=== PATIENT | male | born 1975 | race Native Hawaiian/Other Pacific Islander ===

== ENCOUNTER 2021-08-23 08:10 | Day surgery (SDC) | payer OTHER ==
[2021-08-20 11:54] VITALS: BMI 41.5
--- NOTE | 2021-08-23 07:11 | P.GSHP ---
History of Present Illness H&P Date: 08/23/21 CHIEF COMPLAINT: GERD HISTORY OF PRESENT ILLNESS: The patient is a 45-year-old male who presents reports gastroesophageal reflux disease. Upper endoscopy was offered for further evaluation and management. PAST MEDICAL HISTORY: Please see list. PAST SURGICAL HISTORY: Please see list. MEDICATIONS: Please see list. ALLERGIES: Please see list. SOCIAL HISTORY: No illicit drug use FAMILY HISTORY: No reports of Crohn disease or ulcerative colitis. REVIEW OF ORGAN SYSTEMS: CONSTITUTIONAL: No reports of fevers or chills. GI: Denies any blood in stools or constipation. PHYSICAL EXAM: VITAL SIGNS: Stable GENERAL: Well-developed and pleasant in no acute distress. HEENT: No scleral icterus. Extraocular movements grossly intact. Moist buccal mucosa. NECK: Supple without lymphadenopathy. CHEST: Unlabored respirations. Equal bilateral excursions. CARDIOVASCULAR: Regular rate and rhythm. Distal 2+ pulses. ABDOMEN: Soft, nondistended. MUSCULOSKELETAL: No clubbing, cyanosis, or edema. ASSESSMENT: 1. Gastroesophageal reflux disease PLAN: 1. Recommend proceeding with an upper endoscopy Past Medical History Past Medical History: GERD/Reflux Additional Past Medical History / Comment(s): seasonal allergies. vertigo. undiagnosed sleep apnea. History of Any Multi-Drug Resistant Organisms: None Reported Past Surgical History: Appendectomy, Orthopedic Surgery Additional Past Surgical History / Comment(s): titanium cage around right collar bone. right ankle fused with bone from right hip. multiple surgeries on left hand and wrist. Past Anesthesia/Blood Transfusion Reactions: No Reported Reaction Smoking Status: Current every day smoker - Past Family History Mother Family Medical History: No Reported History Medications and Allergies Home Medications Medication Instructions Recorded Confirmed Type Gabapentin [Neurontin] 800 mg PO TID 07/05/21 08/20/21 History Loratadine-Pseudoeph 10-240 mg 1 tab PO DAILY 07/05/21 08/20/21 History [Claritin-D 24 Hour] Naltrexone HCl [Revia] 50 mg PO DAILY 07/05/21 08/20/21 History Omeprazole [PriLOSEC] 20 mg PO AC-BRKFST 07/05/21 08/20/21 History Propranolol HCl 40 mg PO BID 07/05/21 08/20/21 History QUEtiapine FUMARATE [SEROquel XR] 400 mg PO HS 07/05/21 08/20/21 History buPROPion XL [Wellbutrin XL] 300 mg PO DAILY 07/05/21 08/20/21 History traZODone HCL 200 mg PO HS 07/05/21 08/20/21 History Ergocalciferol [Vitamin D2 (1250 50,000 unit PO WEEKLY 07/14/21 08/20/21 History Mcg = 88905 Iu)] Allergies Allergy/AdvReac Type Severity Reaction Status Date / Time No Known Allergies Allergy Verified 08/20/21 11:43
[~2021-08-23 08:10] MED LIST: LACTATED RINGERS 1,000 ML IV SCH
[2021-08-23 08:30] VITALS: TEMP 97.1
[2021-08-23] MEDS ORDERED: LACTATED RINGERS 1,000 ML IV ONE (08:38)
[2021-08-23] MEDS ORDERED: PROPOFOL 10 MG/ML 20 ML VIAL IV ONE (09:26)
[2021-08-23] MEDS ORDERED: .fentaNYL (PF) 50 MCG/ML 2 ML AMP ONE (09:26)
[2021-08-23] MEDS ORDERED: LIDOCAINE 1% INJ 10MG/ML (20 ML MDV) ONE (09:26)
--- NOTE | 2021-08-23 09:48 | P.PCN ---
Date of Procedure: 08/23/21 Description of Procedure: PREOPERATIVE DIAGNOSIS: Gastroesophageal reflux disease. Morbid obesity. POSTOPERATIVE DIAGNOSIS: Morbid obesity. Gastritis. Gastroesophageal reflux disease. Diaphragmatic hiatal hernia OPERATION: Esophagogastroduodenoscopy with biopsies along antrum. SURGEON: Rosa M Mills MD ANESTHESIA: MAC. INDICATIONS: The patient is a 45-year-old male who presents with a history of reflux disease. Benefits and risks of the procedure were described. Informed consent was obtained. DESCRIPTION: The patient was brought into the endoscopy suite and laid in the left lateral decubitus position. An Olympus gastroscope was passed along the posterior oropharynx down to the distal esophagus where the squamocolumnar junction was encountered at 37 cm from the incisors. The stomach was entered and no bile reflux was found. Additional findings are listed below. Biopsies with cold forc eps were obtained of the antrum. The first through third portion of the duodenum was examined and unremarkable. Retroflexion of the scope confirmed Hill grade 3 lower esophageal valve. The squamocolumnar junction demonstrated LA grade B erosive esophagitis. The stomach was desufflated. The patient tolerated the procedure well. FINDINGS: Squamocolumnar junction 37 cm from the incisors. Diaphragmatic hiatus at 40 cm. Hiatal hernia, 3 cm, sliding hiatal hernia Hill grade 4 lower esophageal valve. LA grade B erosive esophagitis. No active duodenitis. Chronic gastritis RECOMMENDATIONS: Upper endoscopy as needed. Plan - Discharge Summary Discharge Rx Participant: No New Discharge Prescriptions: Continue Loratadine-Pseudoeph 10-240 mg [Claritin-D 24 Hour] 1 tab PO DAILY Gabapentin [Neurontin] 800 mg PO TID buPROPion XL [Wellbutrin XL] 300 mg PO DAILY QUEtiapine FUMARATE [SEROquel XR] 400 mg PO HS Propranolol HCl 40 mg PO BID Naltrexone HCl [Revia] 50 mg PO DAILY Ergocalciferol [Vitamin D2 (1250 Mcg = 80997 Iu)] 50,000 unit PO WEEKLY Omeprazole [PriLOSEC] 20 mg PO AC-BRKFST traZODone HCL 200 mg PO HS Discharge Medication List Gabapentin [Neurontin] 800 mg PO TID 07/05/21 [History] Loratadine-Pseudoeph 10-240 mg [Claritin-D 24 Hour] 1 tab PO DAILY 07/05/21 [History] Naltrexone HCl [Revia] 50 mg PO DAILY 07/05/21 [History] Omeprazole [PriLOSEC] 20 mg PO AC-BRKFST 07/05/21 [History] Propranolol HCl 40 mg PO BID 07/05/21 [History] QUEtiapine FUMARATE [SEROquel XR] 400 mg PO HS 07/05/21 [History] buPROPion XL [Wellbutrin XL] 300 mg PO DAILY 07/05/21 [History] traZODone HCL 200 mg PO HS 07/05/21 [History] Ergocalciferol [Vitamin D2 (1250 Mcg = 42014 Iu)] 50,000 unit PO WEEKLY 07/14/21 [History] Follow up Appointment(s)/Referral(s): [facility] [NON-STAFF] - 09/08/21 Patient Instructions/Handouts: Hiatal Hernia (GEN), Gastroesophageal Reflux Disease (DC) Discharge Disposition: HOME SELF-CARE
[2021-08-23 09:51] VITALS: RESP 16
[2021-08-23 10:02] VITALS: BP 115/80; PULSE 98
== END 2021-08-23 10:23 | disposition home or self-care (01) ==
LOC: ORWHC2ENDO 08:10
PROVIDERS: ATTEND Surgery Plastic and Reconstructive Surgery
DX: K29.70 Gastritis, unspecified, without bleeding (principal); K21.9 Gastro-esophageal reflux disease without esophagitis; K44.9 Diaphragmatic hernia without obstruction or gangrene; E66.01 Morbid (severe) obesity due to excess calories; F17.200 Nicotine dependence, unspecified, uncomplicated
CPT/HCPCS: 43239; 88305; J2001; J3010; J2704

== ENCOUNTER → 2022-05-16 | Outpatient (CLI) | payer OTHER ==
[2022-05-16 10:34] VITALS: BMI 40.3
== END ==
LOC: BARWHC3 08:35
PROVIDERS: ATTEND Surgery Plastic and Reconstructive Surgery
DX: Z71.3 Dietary counseling and surveillance (principal); E66.01 Morbid (severe) obesity due to excess calories; Z68.41 Body mass index [BMI] 40.0-44.9, adult
CPT/HCPCS: 97804

== ENCOUNTER → 2022-08-03 | Outpatient (CLI) | payer OTHER ==
[2022-08-03 12:58] VITALS: BP 118/86; PULSE 92; TEMP 98.4; BMI 36.7
--- NOTE | 2022-08-03 13:49 | P.BASOAP ---
Subjective Progress Note Date: 08/03/22 He had surgery in February for adrenal glans February 2022. He had robotic approach. He is looking into gastric bypass for GERD. Labs from Sep 2021 with high triglycerides and cholesterol. He lost weight and has food diarrhea. Recommend labs. He had surgery with risk of scar tissue discussed. He opted for sleeve if gastric bypass unable to perform. Objective - Vital Signs Vital signs: Vital Signs Temp 98.4 F 08/03/22 12:55 Pulse 92 08/03/22 12:55 Resp BP 118/86 08/03/22 12:55 Pulse Ox FiO2 Intake & Output 08/02/22 08/03/22 08/03/22 18:59 06:59 18:59 Weight 104.78 kg Assessment/Plan Plan: Date: 08/03/22 Initial Weight: Initial BMI: Current Weight: 104.78 kg Current BMI: 36.7 Type of Surgery: Total Volume in Band: Previous Volume: Volume Removed: Volume Added: Band Size:
--- NOTE | 2022-08-03 14:57 | XR ---
EXAMINATION TYPE: XR chest 2V DATE OF EXAM: 08/03/2022 COMPARISON: NONE TECHNIQUE: PA and lateral views submitted. HISTORY: Sleep apnea FINDINGS: The lungs are clear and there is no pneumothorax, pleural effusion, or focal pneumonia. Postsurgica l changes right clavicle previous trauma left clavicle. Curvature of the spine. Hyperinflation sugges tive of COPD. IMPRESSION: 1. No acute process. Correlate for COPD.
[2022-08-03 15:20] LABS: INR 0.9 (<1.2); Partial Thromboplastin Time 23.6 sec (22.0-30.0); Prothrombin Time 10.3 sec (9.0-12.0)
[2022-08-03 17:53] LABS: HCT 41.9 % (39.6-50.0); HGB 14.5 g/dL (13.0-17.0); MCH 33.6 pg (27.0-32.0); MCHC 34.6 g/dL (32.0-37.0); Mean Platelet Volume 11.1 fL (9.5-12.2); NRBC Per 100 WBC 0 /100 WBCS (0.0-0.0); Platelet Count 128 X 10*3/uL (140-440); RBC 4.32 X 10*6/uL (4.40-5.60); RDW 12.6 % (11.5-14.5); WBC 4.82 X 10*3/uL (4.50-10.00)
[2022-08-03 18:43] LABS: HDL Cholesterol 39.2 mg/dL (40.00-60.00); Prealbumin 31.8 mg/dL (18.0-42.0)
[2022-08-03 18:49] LABS: % Iron Saturation 14.96 (15.00-50.00); African American GFR (CKD) 106.7 (60.0-200.0); Albumin 4.6 g/dL (3.8-4.9); Albumin/Globulin Ratio 1.88 (1.60-3.17); Anion Gap 14.6 mmol/L (10.00-18.00); BUN/Creat Ratio 14.31 Ratio (12.00-20.00); Blood Urea Nitrogen 14.2 mg/dL (9.0-27.0); Calcium 8.8 mg/dL (8.7-10.3); Carbon Dioxide 21.8 mmol/L (20.0-27.5); Globulin 2.5 g/dL (1.6-3.3); Magnesium 2.1 mg/dL (1.5-2.4); Phosphorus 3.4 mg/dL (2.4-5.1); Potassium 3.8 mmol/L (3.5-5.5); Total Bilirubin 0.3 mg/dL (0.30-1.20); Total Protein 7.1 g/dL (6.2-8.2)
[2022-08-03 18:56] LABS: Chol/HDL Ratio 4.87 Ratio; LDL Cholesterol,Direct Reflex 87.1 mg/dL (0.00-129.00)
[2022-08-04 13:22] LABS: Zinc, Serum 72 ug/dL (60-130)
[2022-08-05 06:14] LABS: Vitamin A 56 ug/dL (38-106)
== END | disposition home or self-care (01) ==
LOC: BARWHC3 12:37
PROVIDERS: ATTEND Surgery Plastic and Reconstructive Surgery
DX: G47.30 Sleep apnea, unspecified (principal)
CPT/HCPCS: 84255; 84134; 84425; 80061; 80053; 82607; 82728; 82525; 82746; 83540; 83550; 83735; 84100; 84443; 84590; 84630; 85027; 85610; 85730; 83721; 82306; 83970; 83036; 71046; 93005; G0480; G0463; 80323; 99211

== ENCOUNTER → 2023-08-04 | Outpatient (CLI) | payer OTHER ==
--- NOTE | 2023-08-14 21:19 | MR ---
EXAMINATION TYPE: MR knee LT wo con DATE OF EXAM: 08/04/2023 COMPARISON: No radiographic correlation available HISTORY: 47-year-old male S83.262D, left knee pain. TECHNIQUE: Multiplanar, multisequence imaging of the left knee is performed without IV contrast. FINDINGS: There is marked thickening and increased signal along the otherwise intact fibers of the ACL. The PCL is intact. Increased signal on either side of the intact MCL. The LCL complex appears intact. There is mild to moderate irregular cartilage loss along the mid weightbearing aspect of the medial c ompartment. There is prominent degenerative change especially within the posterior horn and extending to the junction with the body of the medial meniscus. In addition, there is a 7 mm parameniscal cyst at the anterior root of the medial meniscus. Otherwise, no discrete meniscal tear seen at this time. The lateral meniscus is diffusely degenerative, torn, and extruded. Meniscal tissue is located within the superior gutter and narrowing of the anterior horn is seen. Severe loss of cartilage and joint space throughout the mid aspect of the lateral compartment with shetty bchondral sclerosis and prominent marginal spurring. Mild superficial irregular cartilage loss along the patellofemoral compartment with overall preserved volume. Extensor mechanism is intact with mild intermediate signal at the mid proximal patellar tendon fibers . There is a small to moderate knee joint effusion. There appears to be a multilocular ganglion cyst measuring 3.3 x 2.2 cm at the adductor longus tendon insertion with confluent edema and fluid overlying the medial aspect of the quadriceps musculature m easuring up to 1.1 cm thick. Trace leaking Prince's cyst is noted. Normal popliteal artery anatomy and muscle bulk. No suspicious bone marrow replacement. IMPRESSION: 1. Prominent mucoid degeneration of the ACL. 2. Grade 1 MCL sprain. 3. Diffusely degenerative, torn, and extruded lateral meniscus. Meniscal tissue is extruded into the superior gutter. No normal anterior horn is identified. Severe lateral compartmental OA. 4. Prominent degenerative signal within the posterior horn and body of the medial meniscus. A 7 mm pa rameniscal cyst at the anterior root of the medial meniscus suggests a subtle underlying tear. 5. A 3.3 x 2.2 cm multilocular ganglion cyst involving the adductor longus insertion medial distal fe mur. There is contiguous confluent edema/fluid overlying the medial quadriceps musculature measuring up to 1.1 cm thick. Consider the possibility of a shearing injury of the superficial fascia here. 6. Small to moderate knee joint effusion and a trace leaking Prince's cyst.
== END | disposition home or self-care (01) ==
LOC: RADMRIMAIN 12:42
PROVIDERS: ATTEND Orthopaedic Surgery
DX: S83.262D Peripheral tear of lateral meniscus, current injury, left knee, subsequent encounter (principal); S83.412A Sprain of medial collateral ligament of left knee, initial encounter; S83.241A Other tear of medial meniscus, current injury, right knee, initial encounter; M17.12 Unilateral primary osteoarthritis, left knee; M71.22 Synovial cyst of popliteal space [Baker], left knee; M67.462 Ganglion, left knee; M25.462 Effusion, left knee